=== PATIENT | female | born 2000 | race Caucasian/White ===

== ENCOUNTER 2024-09-07 11:33 | Outpatient (CLI) | payer BC, SELFPAY | END 2024-09-07 11:34 | disposition home or self-care (01) | LOC: NFLDREF 11:35 | PROVIDERS: Visit Provider Registered Nurse | DX: Z00.00 Encounter for general adult medical examination without abnormal findings (principal); Z13.6 Encounter for screening for cardiovascular disorders | CPT/HCPCS: 80061 ==